=== PATIENT | male | born 1985 | race Caucasian/White ===

== ENCOUNTER 2018-05-09 02:23 | Emergency (ER) | payer SELFPAY ==
[~2018-05-09] VITALS: Ht 170.2 cm; Wt 78.2 kg
[2018-05-09 02:32] VITALS: BP 151/90; PULSE 77; RESP 16; Ht 170.2 cm; Wt 78.2 kg
[2018-05-09] MEDS ORDERED: LIDOCAINE 1% (MPF) 5 ML VIAL INJ ONE (07:00)
[2018-05-09] MEDS ORDERED: CEPH-443 PO (07:51)
[2018-05-09] MEDS ORDERED: ACET500C5 PO (07:51)
--- NOTE | 2018-05-09 16:28 | ERD ---
ER Documentation Chief Complaint Chief Complaint LEFT WRIST LAC AT APPROX 01:00 TODAY HPI 33-year-old male patient with no severe past medical history presents to ED complaining of left wrist laceration that started earlier today. Patient reports that he was in the trash out this morning, and sustained a laceration to his left wrist at 1 AM. Reports it was a metal piece. States that he was up-to-date with his vaccinations including tetanus vaccine, 4 years ago wrist injury. Patient reports that his pain is a 10 out of 10. Denies any loss sensation, loss of range of motion, increased redness, increased swelling, fever, chills, nausea, vomiting. ROS All systems reviewed and are negative except as per history of present illness. Medications Home Meds Active Scripts Acetaminophen* (Tylophen*) 500 Mg Capsule, 1 CAP PO Q6H PRN for PAIN AND OR ELEVATED TEMP, #20 CAP Prov:UNA LION PA-C 05/09/18 Cephalexin* (Keflex*) 500 Mg Capsule, 500 MG PO QID for 7 Days, CAP Prov:UNA LION PA-C 05/09/18 Allergies Allergies: Coded Allergies: No Known Allergy (Unverified , 05/09/18) PMhx/Soc Medical and Surgical Hx: pt denies Medical Hx, pt denies Surgical Hx Hx Alcohol Use: No Hx Substance Use: No Hx Tobacco Use: No Smoking Status: Unknown if ever smoked FmHx Family History: No diabetes, No coronary disease Physical Exam Vitals Vital Signs Date Temp Pulse Resp B/P (MAP) Pulse Ox O2 O2 Flow FiO2 Time Delivery Rate 05/09/18 97.8 77 16 151/90 96 02:32 (110) Physical Exam Const: [id number], well-nourished. In no acute distress. Head: Atraumatic, normocephalic Eyes: Normal Conjunctiva without injection ENT: Normal external ear, nose and mouth. Neck: Full range of motion. No meningismus. Resp: Clear to auscultation bilaterally. No wheezing, rhonchi, rales, or crackles. No accessory muscle use. No retractions. Cardio: Regular rate and rhythm, no murmurs Skin: No petechiae or rashes Back: No midline tenderness. No CVA tenderness. Ext: No cyanosis, or edema. Cap refill less than 2 seconds. Distal pulses intact bilaterally. 4 cm linear laceration noted on the left wrist with no erythema. No edema noted. Minimal bleeding noted. Full range of motion of the bilateral wrist with flexion, extension, medial and lateral deviation. Patient able to make a fist. No snuffbox tenderness. Neur: Awake and alert. Normal gait and coordination. Muscle strength 5/5. Sensation intact bilaterally. Psych: Normal Mood and Affect Results 24 hrs Current Medications Medications Dose Sig/Janeth Start Time Status Last (Trade) Ordered Route PRN Stop Time Admin Dose Reason Admin Lidocaine 5 ml ONCE ONCE 05/09/18 DC (Xylocaine INJ 07:00 05/09/18 1% (Mpf)) 07:01 Procedures/MDM 33-year-old male patient with no sniffing past medical history presents to ED complaining of a left wrist laceration that occurred at 1 AM earlier today. Patient is afebrile and nontoxic-appearing. Patient's blood pressure is 151/90. Blood Pressure Assessment: Patient's blood pressure was elevated (>120/80) but appears stable without evidence of hypertension emergency or urgency. The patient was counseled about the risks of hypertension and urged to pursue outpatient monitoring and therapy within a week with their primary care physician. Patient gave consent to perform laceration repair. Laceration Repair by me: Anesthesia: 5cc 1% lidocaine locally Location: [Volar Aspect, Left Wrist] Tendon/Joint/Nerves: No injury Foreign body: None detected after copious irrigation and exploration Technique: 7 5-0 Simple Interrupted Sutures Complexity: No subcutaneous sutures/mucosal repair /edge excision Post Closure Length: [4] cm Patient's bleeding was easily controlled in the department and there is no indication of anemia. Patient is neurovascularly intact. No evidence of compartment syndrome, neurologic injury, vascular injury, open joint, tendon laceration, or foreign body. Patient is appropriate for outpatient follow up. 48 hour wound check. Scar minimization instructions given. Instructed patient to return for suture removal in 7-10 days. Keflex was prescribed to patient for infection prevention. Instructed patient to return to the ED sooner for any worsening symptoms. Follow up with primary care physician in 1-2 days. Patient's questions were answered. Patient understood and agreed with discharge plan. Departure Diagnosis: Primary Impression: Wrist laceration Encounter type: initial encounter Laterality: left Qualified Codes: S61.512A - Laceration without foreign body of left wrist, initial encounter Condition: Stable Patient Instructions: Laceration, Extrem (Suture, Staple, Or Tape) Referrals: [facility] YOU HAVE RECEIVED A MEDICAL SCREENING EXAM AND THE RESULTS INDICATE THAT YOU DO NOT HAVE A CONDITION THAT REQUIRES URGENT TREATMENT IN THE EMERGENCY DEPARTMENT. FURTHER EVALUATION AND TREATMENT OF YOUR CONDITION CAN WAIT UNTIL YOU ARE SEEN IN YOUR DOCTORS OFFICE WITHIN THE NEXT 1-2 DAYS. IT IS YOUR RESPONSIBILITY TO MAKE AN APPOINTMENT FOR FOLOW-UP CARE. IF YOU HAVE A PRIMARY DOCTOR --you should call your primary doctor and schedule an appointment IF YOU DO NOT HAVE A PRIMARY DOCTOR YOU CAN CALL OUR PHYSICIAN REFERRAL HOTLINE AT IF YOU CAN NOT AFFORD TO SEE A PHYSICIAN YOU CAN CHOSE FROM THE FOLLOWING [facility] [address] [facility]. [facility] [address] [facility] [facility] [address] [facility] [address] [facility] [facility] [address] [facility]. [facility] [address] [facility]. [facility] YOU HAVE RECEIVED A MEDICAL SCREENING EXAM AND THE RESULTS INDICATE THAT YOU DO NOT HAVE A CONDITION THAT REQUIRES URGENT TREATMENT IN THE EMERGENCY DEPARTMENT. FURTHER EVALUATION AND TREATMENT OF YOUR CONDITION CAN WAIT UNTIL YOU ARE SEEN IN YOUR DOCTORS OFFICE WITHIN THE NEXT 1-2 DAYS. IT IS YOUR RESPONSIBILITY TO MAKE AN APPOINTMENT FOR FOLOW-UP CARE. IF YOU HAVE A PRIMARY DOCTOR --you should call your primary doctor and schedule and appointment IF YOU DO NOT HAVE A PRIMARY DOCTOR YOU CAN CALL OUR PHYSICIAN REFERRAL HOTLINE AT . IF YOU CAN NOT AFFORD TO SEE A PHYSICIAN YOU CAN CHOSE FROM THE FOLLOWING [facility] INSTITUTIONS: [facility] [address] [place] [address] [facility] [address] [place] [address] [facility] [address] [place] [address] [facility] URGENT CARE/SPECIALTIES Additional Instructions: Llame al doctor MAANA y tori salvador JESSEE PARA DENTRO DE 2-3 BHAKTA.Dgale a la secretaria que nosotros le instruimos hacer esta jessee.Avise o llame si pedro condicin se empeora antes de la jessee. Regresa aqui si peor o no mejor. WOUND CHECK:CONSULTE A PEDRO MDICO EN 2 hicks para mily PEDRO HERIDA. SUTURE REMOVAL:CONSULTE A PEDRO MDICO PARA SACAR PEDRO PUNTOS.PARA LA ROHAN 5-6 hicks.EN OTRO LUGAR 7-10 hicks. UNA LION PA-C May 09, 2018 16:28
== END 2018-05-09 08:31 | disposition home or self-care (01) ==
LOC: FTE 02:23
DX: S61.512A Laceration without foreign body of left wrist, initial encounter (principal); W26.8XXA Contact with other sharp object(s), not elsewhere classified, initial encounter; Y92.9 Unspecified place or not applicable